=== PATIENT | male | born 1980 | race Caucasian/White ===

== ENCOUNTER 2021-09-14 04:34 | Day surgery (SDC) | payer OTHER ==
[2021-09-13 14:06] VITALS: BMI 34.3
[2021-09-14] MEDS ORDERED: DEXAMETHASONE SOD PHOSPHATE 10 MG/1 ML VIAL ONE (11:58)
[2021-09-14] MEDS ORDERED: ROPIVACAINE HCL 0.5% 30ML VIAL ONE (11:58)
[2021-09-14] MEDS ORDERED: MIDAZOLAM HCL 2 MG/2 ML SINGLE DOSE VIAL ONE ×2 (12:18)
[2021-09-14] MEDS ORDERED: PROPOFOL 20 ML ONE (13:45)
[2021-09-14] MEDS ORDERED: ceFAZolin SODIUM 1 GM VIAL ONE (14:03)
[2021-09-14] MEDS ORDERED: ceFAZolin SODIUM 1 GM VIAL IVPB ONE (14:42)
[2021-09-14 17:15] VITALS: BP 128/75; PULSE 75; TEMP 75
== END 2021-09-14 18:00 | disposition home or self-care (01) ==
LOC: JASU-SURG 04:34
PROVIDERS: ATTEND Orthopaedic Surgery
PROC: 0LS34ZZ Reposition Right Upper Arm Tendon, Percutaneous Endoscopic Approach (ICD-10-PCS; 2021-09-14)
PROC: 0RHJ44Z Insertion of Internal Fixation Device into Right Shoulder Joint, Percutaneous Endoscopic Approach (ICD-10-PCS; 2021-09-14)
PROC: 0RNJ4ZZ Release Right Shoulder Joint, Percutaneous Endoscopic Approach (ICD-10-PCS; principal; 2021-09-14 14:00)
DX: M75.41 Impingement syndrome of right shoulder (principal); M75.21 Bicipital tendinitis, right shoulder
CPT/HCPCS: 29828; C1713; 94760; J1100

== ENCOUNTER 2022-01-28 20:31 | Emergency (ER) | payer SELFPAY ==
[2022-01-28 20:40] VITALS: BP 142/90; PULSE 85; RESP 18; TEMP 98.6; BMI 51.5
[2022-01-28] MEDS ORDERED: FUROSEMIDE 40 MG/4 ML INJECTABLE VIAL IVPUSH ONE ×2 (22:24→23:28)
[2022-01-28 23:07] LABS: BASO % 1.4 % (0-2.0); HEMATOCRIT 49.9 % (35.4-49); LYMPH % 30.6 % (8-40); MEAN CELL VOLUME 88.1 fl (80-96); MEAN PLT VOLUME 8.3 fl (7.5-11.1); MONO % 7.6 % (3.8-10.2); NEUT % 56.4 % (42.8-82.8); PLATELET COUNT 218 10^3/uL (134-434); RBC 5.66 M/mm3 (4.00-5.60); WHITE BLOOD COUNT 9.5 K/mm3 (4.0-10.0)
[2022-01-28 23:21] LABS: CALCIUM 8.9 mg/dL (8.5-10.1)
[2022-01-28 23:22] LABS: ALBUMIN 4.1 g/dl (3.4-5.0); BLOOD UREA NITROGEN 17.2 mg/dL (7-18)
[2022-01-28 23:25] LABS: CREATININE 1.1 mg/dL (0.55-1.3)
[2022-01-28 23:26] LABS: BILIRUBIN,TOTAL 0.8 mg/dL (0.2-1); TOT PROT 8.3 g/dl (6.4-8.2)
[2022-01-28] MEDS ORDERED: FUROSEMIDE 40 MG/4 ML INJECTABLE VIAL ONE (23:48)
== END 2022-01-29 00:01 | disposition home or self-care (01) ==
LOC: JER 20:31
PROC: 3E033GC Introduction of Other Therapeutic Substance into Peripheral Vein, Percutaneous Approach (ICD-10-PCS; principal; 2022-01-28)
DX: R22.42 Localized swelling, mass and lump, left lower limb (principal); R22.41 Localized swelling, mass and lump, right lower limb
CPT/HCPCS: 36415; 80053; 85025; 93970-TC; 99284-25